=== PATIENT | male | born 2005 | race Caucasian/White ===

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

== ENCOUNTER 2023-03-28 20:07 | Emergency (ER) | payer OTHER ==
[~2023-03-28] VITALS: Ht 170.1 cm; Wt 59.0 kg
== END 2023-03-28 21:39 | disposition home or self-care (01) ==
LOC: ED 20:07
DX: F41.9 Anxiety disorder, unspecified (principal); R00.2 Palpitations; M79.672 Pain in left foot; F17.200 Nicotine dependence, unspecified, uncomplicated

== ENCOUNTER 2023-03-30 13:05 | Emergency (ER) | payer OTHER ==
[~2023-03-30] VITALS: Ht 170.1 cm; Wt 59.0 kg
[2023-03-30] MEDS ORDERED: VISTARIL25 MG PO (13:28)
[2023-03-30 14:17] LABS: ALKALINE PHOSPHATASE 67 U/L (46-116); BUN 8 mg/dl (9-23); CHLORIDE 106 mmol/L (98-107); POTASSIUM 2.9 mmol/L (3.4-5.1); TOTAL PROTEIN 7.4 gm/dL (6.0-8.0)
[2023-03-30 14:23] LABS: BASO % 0.3 % (0.0-1.0); EOS % 0.5 % (1.0-4.0); HEMATOCRIT 39.2 % (42.0-52.0); LYMPH # 1.4 10*3/uL (1.3-4.4); LYMPH % 37.3 % (27.0-41.0); MEAN CELL VOLUME 84.7 fl (80.0-94.0); MEAN CORPUSCULAR HGB 31.1 pg (27.0-31.0); MEAN CORPUSCULAR HGB CONC 36.7 g/dl (33.0-37.0); MONO # 0.3 10*3/uL (0.1-1.0); MONO % 7.8 % (3.0-9.0); NEUT # 2.1 10*3/uL (2.3-7.9); NEUT % 53.8 % (47.0-73.0); PLATELET COUNT AUTOMATED 183 10*3/uL (130-400); RED BLOOD COUNT 4.63 10*6/uL (4.50-5.90); RED CELL DISTRI WIDTH 12.1 % (0-14.5); WHITE BLOOD COUNT 3.9 10*3/uL (4.8-10.8)
[2023-03-30 14:26] LABS: SGPT/ALT < 7 U/L (5-49)
[2023-03-30] MEDS ORDERED: POTASSIUM CHLO20 ME3 PO (14:30)
== END 2023-03-30 15:24 | disposition home or self-care (01) ==
LOC: ED 13:05
PROVIDERS: Emergency Medicine
DX: F41.9 Anxiety disorder, unspecified (principal); R06.02 Shortness of breath; E87.6 Hypokalemia; R00.2 Palpitations

== ENCOUNTER 2023-03-31 14:03 | Emergency (ER) | payer OTHER ==
[~2023-03-31] VITALS: Ht 170.1 cm; Wt 59.0 kg
[~2023-03-31 14:03] MED LIST changes: +POTASSIUM CHLO20 ME3 PO; +VISTARIL25 MG PO
[2023-03-31 15:25] LABS: ALKALINE PHOSPHATASE 64 U/L (46-116); CHLORIDE 110 mmol/L (98-107); POTASSIUM 3.8 mmol/L (3.4-5.1); TOTAL PROTEIN 7.1 gm/dL (6.0-8.0)
[2023-03-31 15:28] LABS: BUN < 5 mg/dl (9-23); SGPT/ALT < 7 U/L (5-49)
== END 2023-03-31 15:33 | disposition home or self-care (01) ==
LOC: ED 14:03
PROVIDERS: Emergency Medicine
DX: F41.9 Anxiety disorder, unspecified (principal); E87.6 Hypokalemia; Z98.890 Other specified postprocedural states; Z87.891 Personal history of nicotine dependence

== ENCOUNTER 2023-04-02 16:13 | Emergency (ER) | payer OTHER ==
[~2023-04-02] VITALS: Ht 170.1 cm; Wt 59.0 kg
[2023-04-02 17:18] LABS: BASO % 0.3 % (0.0-1.0); EOS % 0.2 % (1.0-4.0); HEMATOCRIT 41.6 % (42.0-52.0); LYMPH # 1.4 10*3/uL (1.3-4.4); LYMPH % 21.9 % (27.0-41.0); MEAN CELL VOLUME 85.8 fl (80.0-94.0); MEAN CORPUSCULAR HGB 30.9 pg (27.0-31.0); MEAN CORPUSCULAR HGB CONC 36.1 g/dl (33.0-37.0); MEAN PLATELET VOLUME 9.7 fl (9.6-12.3); MONO # 0.3 10*3/uL (0.1-1.0); MONO % 4.8 % (3.0-9.0); NEUT # 4.6 10*3/uL (2.3-7.9); NEUT % 72.8 % (47.0-73.0); PLATELET COUNT AUTOMATED 193 10*3/uL (130-400); RED BLOOD COUNT 4.85 10*6/uL (4.50-5.90); RED CELL DISTRI WIDTH 12.1 % (0-14.5); WHITE BLOOD COUNT 6.3 10*3/uL (4.8-10.8)
[2023-04-02 17:35] LABS: ACT PARTIAL THROMBO TIME 26.8 SECONDS (20.0-32.1)
[2023-04-02 17:45] LABS: ALKALINE PHOSPHATASE 74 U/L (46-116); CHLORIDE 107 mmol/L (98-107); POTASSIUM 3.8 mmol/L (3.4-5.1); TOTAL PROTEIN 7.5 gm/dL (6.0-8.0)
[2023-04-02 17:53] LABS: BUN < 5 mg/dl (9-23); ETHYL ALCOHOL < 3.0 mg/dl (<3); SGPT/ALT < 7 U/L (5-49)
[2023-04-02 19:00] LABS: B-hCG (QUALITATIVE) NEGATIVE
== END 2023-04-02 18:57 | disposition home or self-care (01) ==
LOC: ED 16:13
PROVIDERS: Family Medicine
DX: R07.89 Other chest pain (principal); F41.9 Anxiety disorder, unspecified; F12.90 Cannabis use, unspecified, uncomplicated; Z98.890 Other specified postprocedural states

== ENCOUNTER 2024-04-05 12:03 | Emergency (ER) | payer OTHER ==
[~2024-04-05] VITALS: Wt 54.6 kg
[2024-04-05] MEDS ORDERED: BENZONATATE100 M1 PO (12:55)
[2024-04-05] MEDS ORDERED: AVPAK AZITHROM250 M1 PO (12:55)
== END 2024-04-05 12:57 | disposition home or self-care (01) ==
LOC: ED 12:03
DX: J40 Bronchitis, not specified as acute or chronic (principal); F41.9 Anxiety disorder, unspecified; F17.290 Nicotine dependence, other tobacco product, uncomplicated; Z98.890 Other specified postprocedural states